=== PATIENT | male | born 1970 | race Caucasian/White ===

== ENCOUNTER 2019-06-27 17:12 | Emergency (ER) | payer SELFPAY ==
[~2019-06-27] VITALS: Ht 177.8 cm; Wt 152.4 kg
[2019-06-27 18:15] LABS: Basophils # (auto) 0 uL; Basophils % (auto) 0.7 % (0.0-2.0); Eosinophils # (auto) 0 uL; Eosinophils % (auto) 0.6 % (0.0-7.0); Hematocrit 39.9 % (41.0-53.0); Hemoglobin 13.6 g/dL (13.5-17.5); Lymphocytes % (auto) 13.7 % (10.0-50.0); Mean Corpuscular Hemoglobin 32.4 pg (28.0-32.0); Mean Corpuscular Volume 95.3 fL (80.0-100.0); Monocytes # (auto) 1.2 uL; Monocytes % (auto) 17.8 % (0.0-12.0); Neutrophils # (auto) 4.7 uL; Neutrophils % (auto) 67.2 % (37.0-80.0); Platelet Count (auto) 93 10^3/uL (140-450); Red Blood Cells 4.19 10^6/uL (4.5-5.90); Red Cell Distribution Width 15.6 % (11.8-14.3)
[2019-06-27 18:31] LABS: Albumin 3.4 g/dL (3.4-5.0); Calcium 9.4 mg/dL (8.5-10.1); Chloride 104 mmol/L (98-107); Potassium 3.5 mmol/L (3.5-5.1); Sodium 138 mmol/L (136-145)
[2019-06-27 18:34] LABS: Alanine Aminotransferase 36 U/L (16-61); Anion Gap 8 (5-15); Aspartate Aminotransferase 105 U/L (15-37); BUN/Creatinine Ratio 20.5; Blood Alcohol < 3.0 mg/dL (0-5); Blood Urea Nitrogen 16 mg/dL (7-18); Carbon Dioxide 26 mmol/L (21-32); GFR African American 138 mL/min; GFR Non-African American 114 mL/min; Glucose 105 mg/dL (74-106)
[2019-06-27 18:37] LABS: Alkaline Phosphatase 123 U/L (45-117); Bilirubin, Total 2.7 mg/dL (0.2-1.0)
[2019-06-27 19:37] LABS: Acetaminophen < 2.0 ug/mL (10-30); Salicylate < 0.2 mg/dL (2.8-20.0)
[2019-06-28 01:33] LABS: Urine Bacteria FEW /hpf (None Seen); Urine Blood Negative /uL (Negative); Urine Mucus FEW (None Seen); Urine Specific Gravity 1.029 (1.001-1.035); Urine WBC 5 /hpf (0 - 3)
[2019-06-28 01:41] LABS: Alcohol, Urine < 3.0 mg/dL (0-5); Amphetamine Screen, Urine NEGATIVE (NEGATIVE); Barbiturate Scree,Urine NEGATIVE (NEGATIVE); Benzodiazephine Screen, Urine NEGATIVE (NEGATIVE); Cannabinoid Screen, Urine NEGATIVE (NEGATIVE); Cocaine Screen, Urine NEGATIVE (NEGATIVE); Opiate Scree,Urine NEGATIVE (NEGATIVE); Phencyclidine Screen, Urine NEGATIVE (NEGATIVE)
[2019-06-28 09:54] VITALS: BP 124/81
== END 2019-06-28 10:19 | disposition home or self-care (01) ==
LOC: ER 17:20
DX: F20.9 Schizophrenia, unspecified (principal)
CPT/HCPCS: 36415; 80053; 80307; 80320; 80329; 81001; 82140; 85025

== ENCOUNTER 2019-06-28 18:05 | Emergency (ER) | payer SELFPAY ==
[~2019-06-28] VITALS: Ht 177.8 cm; Wt 152.9 kg
[2019-06-28 21:45] VITALS: BP 125/84
== END 2019-06-28 21:53 | disposition home or self-care (01) ==
LOC: ER 18:05
DX: R51 Headache (principal); J45.909 Unspecified asthma, uncomplicated; I10 Essential (primary) hypertension; Z90.89 Acquired absence of other organs
CPT/HCPCS: 70450